=== PATIENT | male | born 1940 | race Two or more races ===

== ENCOUNTER 2020-07-08 10:53 | Outpatient (CLI) | payer OTHER | END 2020-07-08 10:59 | disposition home or self-care (01) | LOC: NUCLEAR 10:53 | PROVIDERS: ATTEND Internal Medicine | DX: C15.8 Malignant neoplasm of overlapping sites of esophagus (principal) | CPT/HCPCS: 78816; A9552 ==

== ENCOUNTER 2020-12-20 07:36 | Outpatient (CLI) | payer OTHER | END 2020-12-20 07:41 | disposition home or self-care (01) | LOC: NUCLEAR 07:36 | PROVIDERS: ATTEND Internal Medicine | DX: C76.0 Malignant neoplasm of head, face and neck (principal) | CPT/HCPCS: 78816; A9552 ==

== ENCOUNTER 2021-04-13 07:10 | Outpatient (CLI) | payer OTHER | END 2021-04-13 07:15 | disposition home or self-care (01) | LOC: NUCLEAR 07:10 | PROVIDERS: ATTEND Internal Medicine | DX: C76.0 Malignant neoplasm of head, face and neck (principal) | CPT/HCPCS: 78816; A9552 ==